=== PATIENT | female | born 1965 | race African-American/Black ===

== ENCOUNTER 2022-02-24 17:30 | Emergency (ER) | payer BC ==
[2022-02-24 17:39] VITALS: BP 123/85; PULSE 75; RESP 18; TEMP 98.2; BMI 32.5
[2022-02-24] MEDS ORDERED: LIDOCAINE 5% TOPICAL PATCH TP ONE (18:19)
[2022-02-24] MEDS ORDERED: LIDOCAINE 5% TOPICAL PATCH ONE (18:21)
[2022-02-24] MEDS ORDERED: LIDOCAINE PATCH REMOVAL MC SCH (22:00)
== END 2022-02-24 18:28 | disposition home or self-care (01) ==
LOC: JER 17:30 → JERFT 17:30
DX: B02.9 Zoster without complications (principal)
CPT/HCPCS: 99283-25